=== PATIENT | female | born 1965 | race Caucasian/White ===

== ENCOUNTER 2019-10-01 12:41 | Emergency (ER) | payer BC, OTHER ==
[~2019-10-01] VITALS: Ht 157.5 cm; Wt 69.0 kg
[2019-10-01 12:56] VITALS: BP 119/80
[2019-10-01] MEDS ORDERED: ORPH-16 PO (13:23)
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
== END 2019-10-01 13:32 | disposition home or self-care (01) ==
LOC: ER 12:41
DX: S16.1XXA Strain of muscle, fascia and tendon at neck level, initial encounter (principal); M54.6 Pain in thoracic spine; V49.59XA Passenger injured in collision with other motor vehicles in traffic accident, initial encounter; Y92.488 Other paved roadways as the place of occurrence of the external cause; Y93.89 Activity, other specified; Y99.8 Other external cause status
CPT/HCPCS: 99283